=== PATIENT | male | born 1970 | race American Indian/Alaskan Native ===

== ENCOUNTER 2019-06-15 10:15 | Emergency (ER) | payer SELFPAY ==
[2019-06-15 10:28] VITALS: BP 129/77
[2019-06-15] MEDS ORDERED: DELTASONE PO ONE (11:46)
[2019-06-15] MEDS ORDERED: BENADRYL PO ONE (11:46)
[2019-06-15] MEDS ORDERED: PEPCID PO ONE (11:46)
--- NOTE | 2019-06-15 11:50 | Emergency Department Report ---
HPI - General Chief Complaint: Allergic Reaction Time Seen by Provider: 06/15/19 11:41 - HPI HPI: 49-year-old male presents to the emergency department with the complaint of hives and itching to the bilateral arms, trunk, back has been there since yesterday. He does not have any known food, environmental or food allergies. This has never happened to him before. 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 He denies any recent time in any [place] or wooded area. He has not had a primary care physician. Past medical history. ED Past Medical Hx - Past Medical History Previous Medical History?: No - Surgical History Past Surgical History?: No - Social History Smoking Status: Never Smoker Substance Use Type: None - Medications Home Medications: Home Medications Medication Instructions Recorded Confirmed Last Taken Type Permethrin 5% [Acticin 5% CREAM] 1 applicatio TP ONCE #1 tube 07/16/15 Unknown Rx Prednisone [predniSONE 10 mg 10 mg PO .TAPER #1 tab.ds.pk 07/16/15 Unknown Rx (6-Day Pack, 21 Tabs)] hydrOXYzine HCL [Atarax] 25 mg PO Q6HR PRN #20 tablet 07/16/15 Unknown Rx Famotidine [Pepcid] 20 mg PO BID #10 tablet 06/15/19 Unknown Rx diphenhydrAMINE [Benadryl CAP] 25 mg PO Q8H PRN #12 capsule 06/15/19 Unknown Rx predniSONE [Deltasone] 60 mg PO BID #10 tablet 06/15/19 Unknown Rx ED Review of Systems ROS: Stated complaint: RASH Other details as noted in HPI Comment: All other systems reviewed and negative Constitutional: denies: chills, fever ENT: denies: throat pain, congestion Respiratory: denies: cough, shortness of breath Cardiovascular: denies: chest pain, palpitations Skin: rash, pruritus Neurological: denies: headache, weakness Physical Exam - Physical Exam Vital Signs: Vital Signs 06/15/19 10:26 Temperature 97.6 F Pulse Rate 83 Respiratory 16 Rate Blood Pressure 129/77 [Left] O2 Sat by Pulse 100 Oximetry Physical Exam: GENERAL: The patient is well-developed well-nourished. HENT: Normocephalic. Atraumatic. Patient has moist mucous membranes. Oropharynx is clear. EYES: Extraocular motions are intact. Pupils equal reactive to light bilaterally. NECK: Supple. Trachea is midline. CHEST/LUNGS: Clear to auscultation. There is no respiratory distress noted. HEART/CARDIOVASCULAR: Regular. There is no tachycardia. There is no murmur. ABDOMEN: There is no abdominal distention. SKIN: Patient has a few sporadic moderate sized urticarial lesions to the bilateral upper extremities. He has very large urticarial lesions seen to the left flank, the abdomen and the back. No bleeding, weeping or drainage. NEURO: The patient is awake, alert, and oriented. The patient is cooperative. The patient has no focal neurologic deficits. The patient has normal speech. MUSCULOSKELETAL: There is no tenderness or deformity. There is no evidence of acute injury. ED Course Vital Signs 06/15/19 10:26 Temperature 97.6 F Pulse Rate 83 Respiratory 16 Rate Blood Pressure 129/77 [Left] O2 Sat by Pulse 100 Oximetry ED Medical Decision Making - Medical Decision Making She presents with what appears to be some type of allergic reaction. He has urticarial lesions seen to the arms and torso. No signs of any angioedema or anaphylaxis. He was given a dose of steroids, Pepcid and Benadryl here and a prescription for the same. He was also given a referral for dermatology. Vital signs stable throughout his ED course. - Differential Diagnosis allergic reaction/urticaria, dermatitis, cellulitis Critical Care Time: No Critical care attestation.: If time is entered above; I have spent that time in minutes in the direct care of this critically ill patient, excluding procedure time. ED Disposition Clinical Impression: Urticaria Allergic reaction Qualifiers: Encounter type: initial encounter Qualified Code(s): T78.40XA - Allergy, unspecified, initial encounter Disposition: DC-01 TO HOME OR SELFCARE Is pt being admited?: No Condition: Stable Instructions: Urticaria (ED) Additional Instructions: Please follow up with a primary care physician in the next few days. I am giving you a referral for a local workday financials consultant, Dr. Small, to follow up regarding your rash and/or allergic reaction. Return to the emergency Department with any worsening of your symptoms or any acute distress. The Benadryl can be sedating and therefore should not be taken prior to driving, working, being responsible for children, and should not be mixed with alcohol. Prescriptions: diphenhydrAMINE [Benadryl CAP] 25 mg PO Q8H PRN #12 capsule PRN Reason: Allergic Reaction predniSONE [Deltasone] 60 mg PO BID #10 tablet Famotidine [Pepcid] 20 mg PO BID #10 tablet Referrals: RAJIV SMALL MD [Staff Physician] - 2-3 Days [facility] [Outside] - 2-3 Days Time of Disposition: 11:50
== END 2019-06-15 12:00 | disposition home or self-care (01) ==
LOC: ED 10:15
DX: T78.40XA Allergy, unspecified, initial encounter (principal); X58.XXXA Exposure to other specified factors, initial encounter
CPT/HCPCS: 99282; J7512

== ENCOUNTER 2019-06-17 20:32 | Emergency (ER) | payer SELFPAY ==
--- NOTE | 2019-06-17 20:45 | Emergency Department Report ---
Blank Doc - Documentation Documentation: This is a 49-year-old male that presents with worsening rash. Denies any savi oedema. Denies . Denies any other symptoms or complaints. This initial assessment/diagnostic orders/clinical plan/treatment(s) is/are subject to change based on patient's health status, clinical progression and re- assessment by fellow clinical providers in the ED. Further treatment and workup at subsequent clinical providers discretion. Patient/guardians urged not to elope from the ED as their condition may be serious if not clinically assessed and managed. Initial orders include: 1- Patient sent to [facility] for further evaluation and treatment
[2019-06-17] MEDS ORDERED: BENADRYL IV ONE (21:24)
[2019-06-17] MEDS ORDERED: PEPCID IV ONE (21:24)
[2019-06-17] MEDS ORDERED: SOLU-Medrol IV ONE (21:24)
[2019-06-17] MEDS ORDERED: ADRENALINE P/F IM ONE (21:25)
--- NOTE | 2019-06-17 22:59 | Emergency Department Report ---
ED Allergic Reaction HPI - General Chief complaint: Allergic Reaction Stated complaint: SWOLLEN LIPS Time Seen by Provider: 06/17/19 20:44 Source: patient Mode of arrival: Ambulatory Limitations: No Limitations - History of Present Illness Initial Comments: Patient is a 49-year-old -Greek male with no past medical history who presents to the ED with acute onset persistent itchy erythematous maculopapular urticarial rashes diffusely for the last 6 hours. Patient states that about 12 prior to arrival in the ED he developed a small mild lower lip swelling and got concerned. Patient states that he was recently treated for acute allergic reaction to an unknown substance and had been taking prednisone and Benadryl for the same. Patient states that the last time she took Benadryl was about 12 hours ago as well as steroid. Patient denies swollen throat, swollen tongue, dizziness, fever, chills, nausea, vomiting, diarrhea, abdominal pain, swollen eyes, wheezing, shortness of breath or chest pain. MD Complaint: allergic reaction, hives, other (mild lower lip swelling) -: Sudden, hour(s) (6) Exposure: unknown Symptoms: rash, itching, lip swelling. denies: facial swelling, difficulty swallowing, difficulty breathing, orolingual swelling, hoarseness, syncopy, dizziness, nausea, vomiting, other, abdominal pain Severity: moderate Treatment Prior to Arrival: benadryl Previous Allergy History: prior ED visit(s) - Related Data Previous Rx's Medication Instructions Recorded Last Taken Type Permethrin 5% [Acticin 5% CREAM] 1 applicatio TP ONCE #1 tube 07/16/15 Unknown Rx hydrOXYzine HCL [Atarax] 25 mg PO Q6HR PRN #20 tablet 07/16/15 Unknown Rx Famotidine [Pepcid] 20 mg PO BID #10 tablet 06/15/19 Unknown Rx diphenhydrAMINE [Benadryl CAP] 25 mg PO Q8H PRN #12 capsule 06/15/19 Unknown Rx predniSONE [Deltasone] 60 mg PO BID #10 tablet 06/15/19 Unknown Rx EPINEPHrine [Epipen] 0.3 mg IJ ONCE #1 auto.injct 06/17/19 Unknown Rx Mirtazapine [Remeron 30mg TAB] 30 mg PO Q12H PRN #30 tablet 06/17/19 Unknown Rx Prednisone [predniSONE 10 mg 10 mg PO .TAPER #1 tab.ds.pk 06/17/19 Unknown Rx (6-Day Pack, 21 Tabs)] raNITIdine HCl [Zantac] 150 mg PO Q12H #30 tablet 06/17/19 Unknown Rx Allergies Allergy/AdvReac Type Severity Reaction Status Date / Time No Known Allergies Allergy Unverified 07/16/15 09:30 ED Review of Systems ROS: Stated complaint: SWOLLEN LIPS Other details as noted in HPI Constitutional: denies: chills, fever Eyes: denies: eye pain, eye discharge, vision change ENT: other (mild lower lip swelling). denies: ear pain, throat pain Respiratory: denies: cough, shortness of breath, wheezing Cardiovascular: denies: chest pain, palpitations Endocrine: no symptoms reported Gastrointestinal: denies: abdominal pain, nausea, diarrhea Genitourinary: denies: urgency, dysuria Musculoskeletal: denies: back pain, joint swelling, arthralgia Skin: rash, change in color, pruritus, other (Urticarial rashes). denies: lesions Neurological: denies: headache, weakness, paresthesias Psychiatric: denies: anxiety, depression Hematological/Lymphatic: denies: easy bleeding, easy bruising ED Past Medical Hx - Past Medical History Previous Medical History?: Yes Additional medical history: HEART MURMUR - Surgical History Past Surgical History?: No - Social History Smoking Status: Current Every Day Smoker Substance Use Type: None - Medications Home Medications: Home Medications Medication Instructions Recorded Confirmed Last Taken Type Permethrin 5% [Acticin 5% CREAM] 1 applicatio TP ONCE #1 tube 07/16/15 Unknown Rx hydrOXYzine HCL [Atarax] 25 mg PO Q6HR PRN #20 tablet 07/16/15 Unknown Rx Famotidine [Pepcid] 20 mg PO BID #10 tablet 06/15/19 Unknown Rx diphenhydrAMINE [Benadryl CAP] 25 mg PO Q8H PRN #12 capsule 06/15/19 Unknown Rx predniSONE [Deltasone] 60 mg PO BID #10 tablet 06/15/19 Unknown Rx EPINEPHrine [Epipen] 0.3 mg IJ ONCE #1 auto.injct 06/17/19 Unknown Rx Mirtazapine [Remeron 30mg TAB] 30 mg PO Q12H PRN #30 tablet 06/17/19 Unknown Rx Prednisone [predniSONE 10 mg 10 mg PO .TAPER #1 tab.ds.pk 06/17/19 Unknown Rx (6-Day Pack, 21 Tabs)] raNITIdine HCl [Zantac] 150 mg PO Q12H #30 tablet 06/17/19 Unknown Rx ED Physical Exam - General Limitations: No Limitations General appearance: alert, in no apparent distress - Head Head exam: Present: atraumatic, normocephalic, normal inspection - Eye Eye exam: Present: normal appearance, PERRL, EOMI. Absent: scleral icterus, conjunctival injection, nystagmus, periorbital swelling, periorbital tenderness, other Pupils: Present: normal accommodation - ENT ENT exam: Present: normal exam, normal orophraynx, mucous membranes moist, other (Mild lower lip swelling) - Neck Neck exam: Present: normal inspection, full ROM. Absent: tenderness, meningismus, lymphadenopathy, thyromegaly - Respiratory Respiratory exam: Present: normal lung sounds bilaterally. Absent: respiratory distress, wheezes, rales, rhonchi, chest wall tenderness, accessory muscle use, decreased breath sounds - Cardiovascular Cardiovascular Exam: Present: regular rate, normal rhythm, normal heart sounds. Absent: systolic murmur, diastolic murmur, rubs, gallop - GI/Abdominal GI/Abdominal exam: Present: soft, normal bowel sounds. Absent: tenderness, guarding, rebound, hyperactive bowel sounds, hypoactive bowel sounds, organomegaly - Rectal Rectal exam: Present: deferred - Extremities Exam Extremities exam: Present: normal inspection, full ROM, normal capillary refill - Back Exam Back exam: Present: normal inspection, full ROM. Absent: tenderness, CVA te nderness (R), CVA tenderness (L), paraspinal tenderness, vertebral tenderness - Neurological Exam Neurological exam: Present: alert, oriented X3, CN II-XII intact, normal gait, reflexes normal - Psychiatric Psychiatric exam: Present: normal affect, normal mood - Skin Skin exam: Present: warm, dry, intact, normal color, rash (diffuse erythematous patchy macular urticarial rashes), erythema, urticaria ED Course Vital Signs 06/17/19 20:39 Temperature 98.3 F Pulse Rate 80 Respiratory 18 Rate Blood Pressure 113/78 O2 Sat by Pulse 100 Oximetry - Reevaluation(s) Reevaluation #1: 06/17/19 23:07 This is a 49-year-old [place] male who presented to the ED with acute allergic reaction characterized by diffuse itchy erythematous macular urticarial itchy rashes with unknown etiology. In the ED, patient is alert and oriented 3 and is not in distress with normal vital signs. Patient was treated in the ED for acute allergic reaction with the steroid, Benadryl, Pepcid and epinephrine intramuscular injection. On reevaluation, patient's itching has resolved, and the lower lip swelling has significantly improved. Patient's airway is not compromised and is able to swallow and speak normally. Patient was discharged home on medications and advised to continue taking these medications daily and follow-up with his primary care physician in 3-5 days for reevaluation. Patient was also advised to return to the ED immediately if his symptoms get worse. ED Medical Decision Making - Medical Decision Making This is a 49-year-old Greek male who presented to the ED with acute allergic reaction characterized by diffuse itchy erythematous macular urticarial itchy rashes with unknown etiology. In the ED, patient is alert and oriented 3 and is not in distress with normal vital signs. Patient was treated in the ED for acute allergic reaction with the steroid, Benadryl, Pepcid and epinephrine intramuscular injection. On reevaluation, patient's itching has resolved, and the lower lip swelling has significantly improved. Patient's airway is not compromised and is able to swallow and speak normally. Patient was discharged home on medications and advised to continue taking these medications daily and follow-up with his primary care physician in 3-5 days for reevaluation. Patient was also advised to return to the ED immediately if his symptoms get worse. - Differential Diagnosis acute allergic reaction; itching with irritation; acute urticaria Critical care attestation.: If time is entered above; I have spent that time in minutes in the direct care of this critically ill patient, excluding procedure time. ED Disposition Clinical Impression: Urticaria, Itching with irritation Allergic reaction Qualifiers: Encounter type: initial encounter Qualified Code(s): T78.40XA - Allergy, unspecified, initial encounter Disposition: TO HOME OR SELFCARE Is pt being admited?: No Does the pt Need Aspirin: No Condition: Stable Instructions: Urticaria (ED), Allergies (ED), Itchy Skin (ED) Additional Instructions: Take medications with food, drink plenty of fluids and follow-up with your primary care physician in 3-5 days for reevaluation. Return to the ED immediately if symptoms get worse. Prescriptions: EPINEPHrine [Epipen] 0.3 mg IJ ONCE #1 auto.injct Prednisone [predniSONE 10 mg (6-Day Pack, 21 Tabs)] 10 mg PO .TAPER #1 tab.ds.pk Mirtazapine [Remeron 30mg TAB] 30 mg PO Q12H PRN #30 tablet PRN Reason: Itching raNITIdine HCl [Zantac] 150 mg PO Q12H #30 tablet Referrals: [facility] [Outside] - 3-5 Days Time of Disposition: 22:56 Print Language: BULGARIAN
[2019-06-17 23:19] VITALS: BP 119/72
== END 2019-06-17 23:18 | disposition home or self-care (01) ==
LOC: ED 20:32
DX: T78.40XA Allergy, unspecified, initial encounter (principal); X58.XXXA Exposure to other specified factors, initial encounter; L50.9 Urticaria, unspecified; F17.200 Nicotine dependence, unspecified, uncomplicated
CPT/HCPCS: 96372; 96374; 96375; 99282; J0171; J1200; J2930

== ENCOUNTER 2021-04-16 08:45 | Emergency (ER) | payer BC ==
--- NOTE | 2021-04-16 10:42 | Event Note ---
ED Screening Note Date of service: 04/16/21 Time: 10:40 ED Screening Note: 50-year-old male patient with history of tobacco use presents to emergency department complaints of cough, shortness of breath, and wheezing starting this morning. Patient states his symptoms began while he was exposed to chemical fumes at work. He has experienced similar symptoms on prior occasions with chemical exposure. Currently, patient feels as though he is still wheezing, but states the shortness of breath has improved. No known history of chronic lung disease. General: Awake, appropriately interactive, no acute distress. Neck: Supple. Full range of motion intact. Cardiovascular: Regular rate and rhythm. Normal peripheral perfusion. Pulmonary: Clear to auscultation bilaterally. No respiratory distress. Patient is speaking normally without use of accessory muscles. Skin: No apparent rashes or lesions. Neurological: No facial asymmetry. Speech is clear. Follows commands. Patient is alert and oriented. Musculoskeletal: Moves all four extremities spontaneously with normal range of motion. Psych: Cooperative. Appropriate mood and affect. I have greeted and performed a focused rapid initial assessment of this patient. A comprehensive ED assessment and evaluation of the patient, analysis of all test results, and completion of the medical decision-making process will be conducted by additional ED providers. This initial assessment/diagnostic orders/clinical plan/treatment(s) is/are subject to change based on patients health status, clinical progression and re-assessment. Further treatment and workup at subsequent clinical provider's discretion. Patient/guardian urged not to elope from the ED as their condition may be serious if not clinically assessed and managed.
--- NOTE | 2021-04-16 11:11 | XRay Report ---
XR chest routine 2V INDICATION / CLINICAL INFORMATION: cough/sob after chemical exposure; hx tobacco use COMPARISON: None available. FINDINGS: SUPPORT DEVICES: None. HEART / MEDIASTINUM: No significant abnormality. LUNGS / PLEURA: Lungs are clear. Costophrenic sulci are sharp. No pneumothorax. ADDITIONAL FINDINGS: No significant additional findings. IMPRESSION: 1. No acute findings. Signer Name: Steve Collazo MD Signed: 04/16/2021 11:07 AM Workstation Name: [email or web address]
[2021-04-16] MEDS ORDERED: BENZONATATE 100 MG CAP PO ONE (14:03)
--- NOTE | 2021-04-16 14:19 | Emergency Department Report ---
Minor Respiratory - HPI Chief Complaint: Dyspnea/Respdistress Stated Complaint: KAYLA/WHEEZING Time Seen by Provider: 04/16/21 13:41 Duration: 3 Days Severity: mild Minor Respiratory: Yes Able to Tolerate Fluids, Yes Cough, No Rhinorrhea, No Sore Throat, No Ear Pain, No Sick Contacts, No Hemoptysis, No Chest Pain, No Shortness of Breath, No Fever Other History: This is a 50-year-old male with no prior medical history who presents to the ED in no acute or respiratory distress complaining of cough and x3 days. Patient states that he has been having his dry intermittent coughing x3 days. Patient denies any asthma, COPD. Patient denies fever/chills/nausea vomiting. Patient notes that he was concerned due to increased coughing. ED Review of Systems ROS: Stated complaint: KAYLA/WHEEZING Other details as noted in HPI Comment: All other systems reviewed and negative ED Past Medical Hx - Past Medical History Previous Medical History?: Yes Hx Asthma: Yes Additional medical history: HEART MURMUR - Social History Smoking Status: Current Every Day Smoker Substance Use Type: None - Medications Home Medications: Home Medications Medication Instructions Recorded Confirmed Last Taken Type Permethrin 5% [Acticin 5% CREAM] 1 applicatio TP ONCE #1 tube 07/16/15 Unknown Rx hydrOXYzine HCL [Atarax] 25 mg PO Q6HR PRN #20 tablet 07/16/15 Unknown Rx Famotidine [Pepcid] 20 mg PO BID #10 tablet 06/15/19 Unknown Rx diphenhydrAMINE [Benadryl CAP] 25 mg PO Q8H PRN #12 capsule 06/15/19 Unknown Rx predniSONE [Deltasone] 60 mg PO BID #10 tablet 06/15/19 Unknown Rx EPINEPHrine [Epipen] 0.3 mg IJ ONCE #1 auto.injct 06/17/19 Unknown Rx Mirtazapine [Remeron 30mg TAB] 30 mg PO Q12H PRN #30 tablet 06/17/19 Unknown Rx Prednisone [predniSONE 10 mg 10 mg PO .TAPER #1 tab.ds.pk 06/17/19 Unknown Rx (6-Day Pack, 21 Tabs)] raNITIdine HCl [Zantac] 150 mg PO Q12H #30 tablet 06/17/19 Unknown Rx Albuterol Mdi (or & Nicu Only) 2 puff IH QID PRN #8.5 gram 04/16/21 Unknown Rx [ProAir HFA Inhaler] Benzonatate [Tessalon Perles] 100 mg PO Q8HR #30 capsule 04/16/21 Unknown Rx Minor Respiratory Exam - Exam General: Vital signs noted. No distress. Alert and acting appropriately. HEENT: Yes Moist Mucous Membranes, No Pharyngeal Erythema, No Pharyngeal Exudates, No Rhinorrhea, No Conjuctival Injection, No Frontal Tenderness, No Maxillary Tenderness Ear: Neither TM Bulge, Neither TM Erythema, Neither EAC Pain, Neither EAC Discharge Neck: Yes Supple, No Adenopathy Lungs: Yes Good Air Exchange, No Wheezes, No Ronchi, No Stridor, No Cough, No Labored Respirations, No Retractions, No Use of Accessory Muscles, No Other Abnormal Lung Sounds Heart: Yes Regular, No Murmur Abdomen: Yes Normal Bowel Sounds, No Tenderness, No Peritoneal Signs Skin: No Rash, No Edema Neurologic: Alert and oriented, no deficits. Musculoskeletal: Unremarkable. ED Course Vital Signs 04/16/21 08:47 Temperature 97.7 F Pulse Rate 71 Respiratory 18 Rate Blood Pressure 130/70 [Right] O2 Sat by Pulse 99 Oximetry ED Medical Decision Making - Radiology Data Radiology results: report reviewed, image reviewed INDICATION / CLINICAL INFORMATION: cough/sob after chemical exposure; hx tobacco use COMPARISON: None available. FINDINGS: SUPPORT DEVICES: None. HEART / MEDIASTINUM: No significant abnormality. LUNGS / PLEURA: Lungs are clear. Costophrenic sulci are sharp. No pneumothorax. ADDITIONAL FINDINGS: No significant additional findings. IMPRESSION: 1. No acute findings. Signer Name: Steve Collazo MD Signed: 04/16/2021 11:07 AM Workstation Name: [email or web address] Transcribed By: SANJAY Dictated By: Steve Collazo MD Electronically Authenticated By: Steve Collazo MD Signed Date/Time: 04/16/21 1107 - Medical Decision Making 50-year-old male presents with bronchitis. No fever during the ED stay. Discussed with pt symptomatic relief with [id number] medications. Discussed continue Tylenol and Motrin as needed for fever or pain. Discussed increase fluids and diet intake. Discussed rest much needed. Discussed daily vitamin C for immune booster. Discussed follow-up with pcp in 3-5 days. Critical care attestation.: If time is entered above; I have spent that time in minutes in the direct care of this critically ill patient, excluding procedure time. ED Disposition Clinical Impression: Bronchitis Disposition: DC-01 TO HOME OR SELFCARE Is pt being admited?: No Does the pt Need Aspirin: No Condition: Stable Instructions: Upper Respiratory Infection, Adult, [id number], How to Use a Dry Powder Inhaler, [id number], Chronic Bronchitis (ED) Additional Instructions: Make sure to follow up with the primary care physician as discussed. Take all your medications as you've been prescribed. If you have any worsening symptoms or develop new symptoms please return to ED immediately. Prescriptions: Albuterol Mdi (or & Nicu Only) [ProAir HFA Inhaler] 2 puff IH QID PRN #8.5 gram PRN Reason: Shortness Of Breath Benzonatate [Tessalon Perles] 100 mg PO Q8HR #30 capsule Referrals: PRIMARY CARE, [Primary Care Provider] - 3-[address] [facility] [Outside] - 3-[address] [facility] [Outside] - 3-5 Days [facility] [Outside] - 3-5 Days Forms: Work/School Release Form(ED) Time of Disposition: 14:19
[2021-04-16] MEDS ORDERED: predniSONE 20 MG TAB PO ONE (14:22)
[2021-04-16 15:40] VITALS: BP 128/68
== END 2021-04-16 14:58 | disposition home or self-care (01) ==
LOC: ED 08:45
DX: J40 Bronchitis, not specified as acute or chronic (principal); F17.200 Nicotine dependence, unspecified, uncomplicated; Z79.899 Other long term (current) drug therapy
CPT/HCPCS: 71046; 99283; J7512